=== PATIENT | female | born 1955 | race Caucasian/White ===

== ENCOUNTER 2020-02-22 13:01 | Inpatient (IN) ==
[2020-02-22 17:08] LABS: ABG Base Excess 5 mEq/L (-2 to 3); ABG HCO3 35 mEq/L (21-27); ABG Oxygen Saturation 82 % (95-98); ABG PCO2 67 mmHg (35-45); ABG PH 7.33 pH Units (7.32-7.45); ABG PO2 52 mmHg (85-104); ABG TCO2 37 mEq/L (20-26); Blood Gas VT 500 cc
[2020-02-22] MEDS: FentaNYL (PF) 1,000 MCG/100 ML IV.SOLN IVC SCH (17:08)
[2020-02-22] MEDS ORDERED: Naloxone 0.4 MG/ML INJ IVP PRN (17:31)
[2020-02-22] MEDS: Pantoprazole 40 MG VIAL IVP SCH (17:44)
[2020-02-22] MEDS ORDERED: *HR* Heparin 5,000 UNIT/ML VIAL IVP ONE (17:47)
[2020-02-22] MEDS ORDERED: *HR* Heparin 5,000 UNIT/ML VIAL IVP PRN ×2 (17:47)
[2020-02-22] MEDS ORDERED: Vancomycin 2,000 MG/520 ML IV.SOLN IVPB ONE (18:00)
[2020-02-22] MEDS ORDERED: levoFLOXacin 750 MG/150 ML 750 MG/150 ML BAG IVPB SCH (18:00)
[2020-02-22] MEDS ORDERED: Heparin 25,000UNIT/250ML 1/2NS 25,000 UNIT/250 ML IV.SOLN IVC SCH (18:00)
[2020-02-22 18:16] LABS: Adenovirus Not Detected (Not Detect); Coronavirus 229E Not Detected (Not Detect); Coronavirus HKU1 Not Detected (Not Detect); Coronavirus NL63 Not Detected (Not Detect); Coronavirus OC43 Not Detected (Not Detect)
[2020-02-22 18:17] LABS: Bordetella Pertussis Not Detected (Not Detect); Chlamydophila pneumoniae Not Detected (Not Detect); Human Metapneumovirus Not Detected (Not Detect); Human Rhinovirus/Enterovirus Not Detected (Not Detect); Influenza A Subtype 2009 H1 Not Detected (Not Detect); Influenza B Not Detected (Not Detect); Mycoplasma pneumoniae Not Detected (Not Detect); Parainfluenza Virus 1 Not Detected (Not Detect); Parainfluenza Virus 2 Not Detected (Not Detect); Parainfluenza Virus 3 Not Detected (Not Detect); Parainfluenza Virus 4 Not Detected (Not Detect); Respiratory Syncytial Virus Not Detected (Not Detect)
[2020-02-22 18:38] LABS: Basophils % 0.2 %; Eosinophils % 0.1 %; Hemoglobin 17.9 g/dL (11.5-15.4); Immature Granulocytes % 0.8 % (0-4); Lymphocytes # 2.8 K/mcL (0.6-4.6); Lymphocytes % 18.3 %; Mean Corpuscular HGB Conc 30.1 g/dL (31.6-35.5); Mean Corpuscular Hemoglobin 27.5 pg (28.0-33.3); Mean Corpuscular Volume 91.4 fL (83.0-100.0); Mean Platelet Volume 10.1 fL (9.4-12.4); Monocytes # 0.9 K/mcL (0.0-1.3); Monocytes % 6.1 %; Neutrophils # 11.5 K/mcL (1.6-8.9); Nucleated Red Blood Cells 0.6 /100 WBC (0); Platelet Count 221 K/mcL (140-400); Red Cell Distribution Width 18.7 % (11.5-14.5); Segmented Neutrophils % 74.5 %; White Blood Count 15.4 K/mcL (4.3-11.1)
[2020-02-22 18:39] LABS: Heparin anti-factor XA UFH < 0.04 IU/mL (0.30-0.70); INR 1.1; Prothrombin Time 12.5 Seconds (9.4-12.1)
[2020-02-22 18:43] LABS: Hematocrit 59.4 % (35.3-44.9)
[2020-02-22] MEDS ORDERED: Furosemide 40 MG/4 ML VIAL IVP ONE (19:22)
[2020-02-22] MEDS ORDERED: Perflutren Lipid Microsphere 1.3 ML in 0.9 % Sodium Chloride 8.7 ML IVP PRN (19:26)
[2020-02-22 19:34] LABS: Bilirubin,Urine Negative (Negative); Blood,Urine Moderate (Negative); Clarity,Urine Clear (Clear); Color,Urine Light-Yellow (Yellow); Glucose,Urine (UA) Normal (Normal); Granular Casts,Urine Few per lpf (None Seen); Hyaline Casts,Urine Moderate per lpf (None Seen); Ketones,Urine Negative (Negative); Leukocyte Esterase,Urine Negative (Negative); Mucus,Urine Few per lpf (None-Few); Nitrite,Urine Negative (Negative); Protein,Urine Trace mg/dL (Neg-Trace); RBC,Urine 0-3 per hpf (0-3); Specific Gravity,Urine 1.023 (1.010-1.025); Squamous Epithelial Cell,Urine Few per hpf (None-Few); Urobilinogen,Urine Normal (Normal)
[2020-02-22] MEDS: Ipratropium/Albuterol Neb 3 ML IH SCH ×2 (19:59→23:56)
[2020-02-22 21:03] LABS: Calcium 9.3 mg/dL (8.6-10.3)
[2020-02-22] MEDS: Artificial Tears SOLN 15 ML BOTTLE BOTH EYES SCH (21:31)
[2020-02-22] MEDS: Chlorhexidine Rinse 15 ML MOUTHWASH MM SCH (21:31)
[2020-02-23 00:10] LABS: ABG Base Excess 8 mEq/L (-2 to 3); ABG HCO3 36 mEq/L (21-27); ABG Oxygen Saturation 95 % (95-98); ABG PCO2 57 mmHg (35-45); ABG PH 7.41 pH Units (7.32-7.45); ABG PO2 76 mmHg (85-104); ABG TCO2 37 mEq/L (20-26); Blood Gas Modality ASSIST CONTROL; Blood Gas VT 500 cc
[2020-02-23 01:17] LABS: Calcium 9.1 mg/dL (8.6-10.3); Potassium 4.7 mEq/L (3.5-5.1)
[2020-02-23] MEDS: MethylPREDNISolone 40 MG/ML VIAL IVP SCH ×2 (01:37→08:05)
[2020-02-23] MEDS: Artificial Tears SOLN 15 ML BOTTLE BOTH EYES SCH ×7 (01:47→23:43)
[2020-02-23] MEDS: Ipratropium/Albuterol Neb 3 ML IH SCH ×6 (03:38→23:38)
[2020-02-23 03:53] LABS: Basophils % 0.2 %; Eosinophils % 0.1 %; Hematocrit 57.9 % (35.3-44.9); Hemoglobin 17.8 g/dL (11.5-15.4); Immature Granulocytes % 0.6 % (0-4); Lymphocytes # 1.4 K/mcL (0.6-4.6); Lymphocytes % 11.2 %; Mean Corpuscular HGB Conc 30.7 g/dL (31.6-35.5); Mean Corpuscular Hemoglobin 27.4 pg (28.0-33.3); Mean Corpuscular Volume 89.2 fL (83.0-100.0); Mean Platelet Volume 9.8 fL (9.4-12.4); Monocytes # 0.6 K/mcL (0.0-1.3); Neutrophils # 10.5 K/mcL (1.6-8.9); Nucleated Red Blood Cells 0.5 /100 WBC (0); Platelet Count 202 K/mcL (140-400); Red Blood Count 6.49 M/mcL (3.82-4.97); Segmented Neutrophils % 82.9 %; White Blood Count 12.6 K/mcL (4.3-11.1)
[2020-02-23 04:05] LABS: ABG Base Excess 8 mEq/L (-2 to 3); ABG HCO3 36 mEq/L (21-27); ABG Oxygen Saturation 95 % (95-98); ABG PCO2 59 mmHg (35-45); ABG PH 7.39 pH Units (7.32-7.45); ABG PO2 79 mmHg (85-104); ABG TCO2 37 mEq/L (20-26); Blood Gas Modality ASSIST CONTROL; Blood Gas VT 500 cc
[2020-02-23] MEDS: FentaNYL (PF) 1,000 MCG/100 ML IV.SOLN IVC SCH ×2 (04:05→13:21)
[2020-02-23 04:12] LABS: Calcium 9.1 mg/dL (8.6-10.3); Magnesium 2.1 mg/dL (1.6-2.6); Phosphorous 3.2 mg/dL (2.7-4.5); Potassium 4.5 mEq/L (3.5-5.1)
[2020-02-23] MEDS ORDERED: Furosemide 40 MG/4 ML VIAL IVP ONE (07:26)
[2020-02-23] MEDS: Chlorhexidine Rinse 15 ML MOUTHWASH MM SCH ×2 (08:07→19:55)
[2020-02-23] MEDS: Pantoprazole 40 MG VIAL IVP SCH (08:07)
[2020-02-23] MEDS: Artificial Tears SOLN 15 ML BOTTLE BOTH EYES PRN ×2 (08:11→15:35)
[2020-02-23] MEDS ORDERED: *HR* Etomidate 20 MG/10 ML AMPUL IVP ONE (10:53)
[2020-02-23] MEDS ORDERED: *HR* Rocuronium Bromide 50 MG/5 ML VIAL IVP ONE (10:53)
[2020-02-23] MEDS: *HR* Heparin 5,000 UNIT/ML VIAL SQ SCH ×2 (13:35→21:36)
[2020-02-23] MEDS: levoFLOXacin 750 MG/150 ML 750 MG/150 ML BAG IVPB SCH (16:39)
[2020-02-23] MEDS ORDERED: Vancomycin 1,500 MG/265 ML IV.SOLN IVPB SCH (18:00)
[2020-02-24] MEDS: FentaNYL (PF) 1,000 MCG/100 ML IV.SOLN IVC SCH (01:05)
[2020-02-24] MEDS: Ipratropium/Albuterol Neb 3 ML IH SCH ×6 (03:32→23:27)
[2020-02-24] MEDS: Artificial Tears SOLN 15 ML BOTTLE BOTH EYES SCH ×3 (03:47→09:10)
[2020-02-24 04:05] LABS: ABG Base Excess 11 mEq/L (-2 to 3); ABG HCO3 38 mEq/L (21-27); ABG Oxygen Saturation 95 % (95-98); ABG PCO2 52 mmHg (35-45); ABG PH 7.46 pH Units (7.32-7.45); ABG PO2 75 mmHg (85-104); ABG TCO2 39 mEq/L (20-26); Blood Gas Modality ASSIST CONTROL; Blood Gas VT 400 cc
[2020-02-24] MEDS: *HR* Heparin 5,000 UNIT/ML VIAL SQ SCH ×3 (04:57→22:02)
[2020-02-24 05:29] LABS: Basophils % 0.2 %; Eosinophils % 0.1 %; Hematocrit 56.5 % (35.3-44.9); Hemoglobin 17.6 g/dL (11.5-15.4); Immature Granulocytes % 0.5 % (0-4); Lymphocytes # 2.6 K/mcL (0.6-4.6); Lymphocytes % 18.7 %; Mean Corpuscular HGB Conc 31.2 g/dL (31.6-35.5); Mean Corpuscular Hemoglobin 27.3 pg (28.0-33.3); Mean Corpuscular Volume 87.7 fL (83.0-100.0); Monocytes # 1.3 K/mcL (0.0-1.3); Neutrophils # 9.9 K/mcL (1.6-8.9); Platelet Count 200 K/mcL (140-400); Red Blood Count 6.44 M/mcL (3.82-4.97); Red Cell Distribution Width 18.3 % (11.5-14.5); Segmented Neutrophils % 71.5 %; White Blood Count 13.8 K/mcL (4.3-11.1)
[2020-02-24 05:41] LABS: Calcium 9.1 mg/dL (8.6-10.3); Potassium 4.4 mEq/L (3.5-5.1)
[2020-02-24] MEDS: Dexmedetomidine HCl 400 MCG/100 ML MLS IVC SCH ×3 (07:25→23:10)
[2020-02-24] MEDS: Artificial Tears SOLN 15 ML BOTTLE BOTH EYES PRN (07:47)
[2020-02-24] MEDS: MethylPREDNISolone 40 MG/ML VIAL IVP SCH (07:47)
[2020-02-24] MEDS: Chlorhexidine Rinse 15 ML MOUTHWASH MM SCH (07:47)
[2020-02-24] MEDS: lamoTRIgine 100 MG TABLET PO SCH ×2 (07:47→20:26)
[2020-02-24] MEDS: Pantoprazole 40 MG VIAL IVP SCH (07:47)
[2020-02-24] MEDS ORDERED: *HR* OxyCODONE/APAP 10/325 TABLET PO PRN (11:11)
[2020-02-24] MEDS: Gabapentin 400 MG CAPSULE PO SCH ×2 (14:20→20:26)
[2020-02-24] MEDS: levoFLOXacin 750 MG/150 ML 750 MG/150 ML BAG IVPB SCH (16:13)
[2020-02-24] MEDS: Morphine Sulfate ER (12 HR) 15 MG TABLET.ER PO SCH (16:27)
[2020-02-24 16:36] LABS: ABG Base Excess 12 mEq/L (-2 to 3); ABG HCO3 42 mEq/L (21-27); ABG Oxygen Saturation 95 % (95-98); ABG PCO2 71 mmHg (35-45); ABG PH 7.39 pH Units (7.32-7.45); ABG PO2 80 mmHg (85-104); ABG TCO2 45 mEq/L (20-26)
[2020-02-24] MEDS ORDERED: Morphine Sulfate ER (12 HR) 30 MG TABLET.ER PO SCH (21:00)
[2020-02-25] MEDS: Ipratropium/Albuterol Neb 3 ML IH SCH ×5 (03:18→20:48)
[2020-02-25 05:26] LABS: Basophils % 0.1 %; Hematocrit 53.3 % (35.3-44.9); Hemoglobin 16.4 g/dL (11.5-15.4); Immature Granulocytes % 0.5 % (0-4); Lymphocytes # 2.4 K/mcL (0.6-4.6); Lymphocytes % 27.3 %; Mean Corpuscular HGB Conc 30.8 g/dL (31.6-35.5); Mean Corpuscular Hemoglobin 27.9 pg (28.0-33.3); Mean Corpuscular Volume 90.6 fL (83.0-100.0); Mean Platelet Volume 9.7 fL (9.4-12.4); Monocytes # 0.8 K/mcL (0.0-1.3); Monocytes % 8.8 %; Neutrophils # 5.6 K/mcL (1.6-8.9); Platelet Count 150 K/mcL (140-400); Red Blood Count 5.88 M/mcL (3.82-4.97); Red Cell Distribution Width 17.4 % (11.5-14.5); Segmented Neutrophils % 63.3 %; White Blood Count 8.8 K/mcL (4.3-11.1)
[2020-02-25] MEDS: Morphine Sulfate ER (12 HR) 15 MG TABLET.ER PO SCH ×2 (05:35→20:37)
[2020-02-25] MEDS: *HR* Heparin 5,000 UNIT/ML VIAL SQ SCH ×3 (05:36→20:38)
[2020-02-25 05:54] LABS: BUN/Creatinine Ratio 25 (6-26); Blood Urea Nitrogen 20 mg/dL (8-23); Calcium 8.7 mg/dL (8.6-10.3); Chloride 99 mEq/L (98-107); Glucose 88 mg/dL (70-105); Osmolality,Calculated 292 (280-300); Potassium 3.3 mEq/L (3.5-5.1); Sodium 140 mEq/L (136-145); eGFR For African Americans > 60 (> 60); eGFR For Non-African Americans > 60 (> 60)
[2020-02-25 06:31] LABS: Carbon Dioxide 33 mEq/L (23-29)
[2020-02-25] MEDS ORDERED: Furosemide 40 MG/4 ML VIAL IVP ONE (08:02)
[2020-02-25] MEDS: Pantoprazole 40 MG VIAL IVP SCH (10:55)
[2020-02-25] MEDS: Gabapentin 400 MG CAPSULE PO SCH ×3 (10:55→20:38)
[2020-02-25] MEDS: MethylPREDNISolone 40 MG/ML VIAL IVP SCH (10:55)
[2020-02-25] MEDS: lamoTRIgine 100 MG TABLET PO SCH ×2 (10:55→20:38)
[2020-02-25] MEDS ORDERED: Naloxone 0.4 MG/ML INJ IVP PRN (18:12)
[2020-02-25] MEDS: levoFLOXacin 750 MG/150 ML 750 MG/150 ML BAG IVPB SCH (20:40)
[2020-02-26] MEDS: Ipratropium/Albuterol Neb 3 ML IH SCH ×6 (00:28→19:43)
[2020-02-26] MEDS: Morphine Sulfate ER (12 HR) 15 MG TABLET.ER PO SCH ×2 (05:18→17:02)
[2020-02-26] MEDS: *HR* Heparin 5,000 UNIT/ML VIAL SQ SCH ×3 (05:18→20:20)
[2020-02-26 07:27] LABS: Basophils % 0.2 %; Eosinophils % 0.1 %; Hemoglobin 16.9 g/dL (11.5-15.4); Immature Granulocytes % 0.5 % (0-4); Lymphocytes # 2.4 K/mcL (0.6-4.6); Lymphocytes % 29.8 %; Mean Corpuscular HGB Conc 30.6 g/dL (31.6-35.5); Mean Corpuscular Hemoglobin 27.6 pg (28.0-33.3); Mean Corpuscular Volume 90.4 fL (83.0-100.0); Mean Platelet Volume 9.4 fL (9.4-12.4); Monocytes # 0.7 K/mcL (0.0-1.3); Monocytes % 8.6 %; Neutrophils # 4.9 K/mcL (1.6-8.9); Platelet Count 164 K/mcL (140-400); Red Blood Count 6.12 M/mcL (3.82-4.97); Red Cell Distribution Width 17.2 % (11.5-14.5); Segmented Neutrophils % 60.8 %; White Blood Count 8.1 K/mcL (4.3-11.1)
[2020-02-26 07:42] LABS: Phosphorous 3.6 mg/dL (2.7-4.5)
[2020-02-26 07:49] LABS: Hematocrit 55.3 % (35.3-44.9)
[2020-02-26 07:50] LABS: BUN/Creatinine Ratio 23 (6-26); Blood Urea Nitrogen 15 mg/dL (8-23); Carbon Dioxide 32 mEq/L (23-29); Chloride 102 mEq/L (98-107); Glucose 84 mg/dL (70-105); Osmolality,Calculated 288 (280-300); Potassium 4.3 mEq/L (3.5-5.1); Sodium 139 mEq/L (136-145); eGFR For African Americans > 60 (> 60); eGFR For Non-African Americans > 60 (> 60)
[2020-02-26] MEDS: predniSONE 20 MG TABLET PO SCH (08:37)
[2020-02-26] MEDS: Furosemide 40 MG TABLET PO SCH (08:37)
[2020-02-26] MEDS: lamoTRIgine 100 MG TABLET PO SCH ×2 (08:37→20:20)
[2020-02-26] MEDS: Gabapentin 400 MG CAPSULE PO SCH ×3 (08:37→20:20)
[2020-02-26] MEDS ORDERED: predniSONE 20 MG TABLET PO SCH (09:00)
[2020-02-26] MEDS: levoFLOXacin 750 MG/150 ML 750 MG/150 ML BAG IVPB SCH (17:02)
[2020-02-27] MEDS: Ipratropium/Albuterol Neb 3 ML IH SCH ×7 (00:02→23:46)
[2020-02-27 05:55] LABS: Basophils % 0.5 %; Eosinophils % 0.5 %; Hemoglobin 17.9 g/dL (11.5-15.4); Immature Granulocytes % 0.6 % (0-4); Lymphocytes # 2.5 K/mcL (0.6-4.6); Lymphocytes % 29.3 %; Mean Corpuscular HGB Conc 30.8 g/dL (31.6-35.5); Mean Corpuscular Hemoglobin 28.3 pg (28.0-33.3); Mean Corpuscular Volume 91.8 fL (83.0-100.0); Mean Platelet Volume 9.7 fL (9.4-12.4); Monocytes # 0.7 K/mcL (0.0-1.3); Monocytes % 8.5 %; Neutrophils # 5.1 K/mcL (1.6-8.9); Platelet Count 157 K/mcL (140-400); Red Blood Count 6.33 M/mcL (3.82-4.97); Red Cell Distribution Width 17.6 % (11.5-14.5); Segmented Neutrophils % 60.6 %; White Blood Count 8.5 K/mcL (4.3-11.1)
[2020-02-27 05:56] LABS: Hematocrit 58.1 % (35.3-44.9)
[2020-02-27] MEDS: Morphine Sulfate ER (12 HR) 15 MG TABLET.ER PO SCH ×2 (06:09→17:24)
[2020-02-27] MEDS: *HR* Heparin 5,000 UNIT/ML VIAL SQ SCH ×3 (06:10→20:43)
[2020-02-27 06:13] LABS: BUN/Creatinine Ratio 21 (6-26); Blood Urea Nitrogen 17 mg/dL (8-23); Calcium 9.2 mg/dL (8.6-10.3); Carbon Dioxide 35 mEq/L (23-29); Chloride 100 mEq/L (98-107); Glucose 84 mg/dL (70-105); Osmolality,Calculated 289 (280-300); Sodium 139 mEq/L (136-145); eGFR For African Americans > 60 (> 60); eGFR For Non-African Americans > 60 (> 60)
[2020-02-27] MEDS: Gabapentin 400 MG CAPSULE PO SCH ×3 (08:47→20:42)
[2020-02-27] MEDS: lamoTRIgine 100 MG TABLET PO SCH ×2 (08:47→20:42)
[2020-02-27] MEDS: predniSONE 20 MG TABLET PO SCH (08:48)
[2020-02-27] MEDS: Furosemide 40 MG TABLET PO SCH (08:48)
[2020-02-28] MEDS: Ipratropium/Albuterol Neb 3 ML IH SCH ×4 (03:38→15:02)
[2020-02-28] MEDS: Morphine Sulfate ER (12 HR) 15 MG TABLET.ER PO SCH ×2 (06:16→18:10)
[2020-02-28] MEDS: *HR* Heparin 5,000 UNIT/ML VIAL SQ SCH ×2 (06:17→13:38)
[2020-02-28] MEDS: Furosemide 40 MG TABLET PO SCH (09:43)
[2020-02-28] MEDS: lamoTRIgine 100 MG TABLET PO SCH (09:43)
[2020-02-28] MEDS: Gabapentin 400 MG CAPSULE PO SCH ×2 (09:44→13:38)
[2020-02-28 16:06] VITALS: BP 104/61
== END 2020-02-28 18:28 | disposition home health service (06) | DRG 133 ==
LOC: CDU → OBSVTOIN 16:09 → SUATTDRO 16:09 → ICNU 18:28 → 2ANU 02-25 18:08
PROVIDERS: ADMIT Student in an Organized Health Care Education/Training Program; ATTEND Internal Medicine